=== PATIENT | male | born 1965 | race African-American/Black ===

== ENCOUNTER 2024-04-29 08:00 | Day surgery (SDC) | payer OTHER ==
[2024-04-25 09:22] VITALS: BMI 33.3
[2024-04-29 08:22] VITALS: RESP 17
[2024-04-29] MEDS ORDERED: PROPOFOL 40 ML ONE (10:06)
[2024-04-29] MEDS ORDERED: LIDOCAINE HCL/PF 2% SDV 5ML VIAL ONE (10:06)
[2024-04-29 12:11] VITALS: BP 113/61; PULSE 85; TEMP 97.5
== END 2024-04-29 10:50 | disposition home or self-care (01) ==
LOC: FASU-ENDO 08:00
PROVIDERS: ATTEND Internal Medicine Gastroenterology
PROC: 0DBL8ZX Excision of Transverse Colon, Via Natural or Artificial Opening Endoscopic, Diagnostic (ICD-10-PCS; 2024-04-29)
PROC: 0DBM8ZX Excision of Descending Colon, Via Natural or Artificial Opening Endoscopic, Diagnostic (ICD-10-PCS; principal; 2024-04-29 09:49)
DX: Z12.11 Encounter for screening for malignant neoplasm of colon (principal); K63.5 Polyp of colon; K57.30 Diverticulosis of large intestine without perforation or abscess without bleeding
CPT/HCPCS: 88305-TC